=== PATIENT | male | born 1960 | race Caucasian/White ===

== ENCOUNTER 2016-10-01 12:52 | Inpatient (IN) | payer OTHER ==
[~2016-10-01] VITALS: Ht 167.6 cm; Wt 96.6 kg
[~2016-10-01 12:52] MED LIST: AMLO5TAB4 PO; FENO160T PO; METO-304 PO; OMEP40CA37 PO; PRAV40TA PO; WARF6TAB5 PO; WARF7.5T4 PO
--- NOTE | 2016-10-01 13:20 | NUR ---
PT BIB DAUGHTER C/O MID-CHEST PRESSURE SINCE LAST FRIDAY INTERMITTENTLY, WORSE WITH EXERTION, WHICH RADIATES TO "TOP OF SHOULDERS". PT ALSO C/O ASSOCIATED SOB AND ORTHOPNEA BUT MOSTLY RELIEVED [place]. RESP APPEARS EVEN UNLABORED, 96% ON ROOM AIR. ABLE TO SPEAK FULL SENTENCES. REPORTS DIAPHORESIS YESTERDAY; SKIN WARM AND SLIGHTLY DIAPHORETIC ON PRESENTATION. AMBULATORY WITH STEADY GAIT. IN ER BED 14 ON MONITOR.
[2016-10-01] MEDS ORDERED: NITROGLYCERIN PACKET 1 GM PACKET ONE (13:31)
[2016-10-01 13:33] LABS: BASOPHILS # (AUTO) 0.4 /CMM (0.0-0.2); EOSINOPHILS # (AUTO) 0.2 /CMM (0.0-0.7); EOSINOPHILS % (AUTO) 1.7 % (0.0-6.0); HEMATOCRIT 39 % (39-51); LYMPHOCYTES # (AUTO) 1.6 /CMM (0.8-4.8); LYMPHOCYTES % (AUTO) 11.5 % (20.0-44.0); MEAN CORPUSCULAR HEMOGLOBIN 30 PG (26.0-33.0); MEAN CORPUSCULAR HGB CONC 33 g/dl (31.0-36.0); MEAN CORPUSCULAR VOLUME 90 fL (80-96); MONOCYTES # (AUTO) 1.1 /CMM (0.1-1.30); MONOCYTES % (AUTO) 8.1 % (2.0-12.0); NEUTROPHILS # (AUTO) 10.2 /CMM (1.8-8.9); NEUTROPHILS % (AUTO) 75.7 % (43.0-81.0); PLATELET COUNT (AUTO) 169 /CMM (150-450); RDW COEFFICIENT OF VARIATION 13.8 (11.5-15.0); RED BLOOD CELL COUNT(AUTO) 4.36 MIL/uL (4.5-6.0); WHITE BLOOD COUNT (AUTO) 13.5 K/uL (4.3-11.0)
[2016-10-01 13:42] LABS: CALCIUM, SERUM 8.5 mg/dL (8.5-10.1); CREATININE 0.9 mg/dL (0.6-1.3); POTASSIUM 4.4 mmol/L (3.5-5.1)
[2016-10-01 13:46] LABS: INR 1.6 (0.87-1.13); PROTHROMBIN TIME 17.1 SECS (9.5-12.7)
[2016-10-01 13:50] LABS: TROPONIN I 0.027 ng/mL (0.00-0.056)
[2016-10-01 13:54] LABS: ALBUMIN 2.8 g/dL (3.4-5.0); BILIRUBIN,DIRECT 0.1 mg/dL (0.0-0.2); BILIRUBIN,TOTAL 0.6 mg/dL (0.2-1.0); TOTAL PROTEIN, SERUM 7.2 g/dL (6.4-8.2)
[2016-10-01] MEDS ORDERED: NITROGLYCERIN PACKET 1 GM PACKET TD ONE (14:00)
[2016-10-01] MEDS ORDERED: SPIR50TA PO (14:13)
--- NOTE | 2016-10-01 14:41 | NUR ---
RESTING QUIETLY, NAD NOTED. VSS. ALL NEEDS ATTENDED TO.
--- NOTE | 2016-10-01 14:42 | NUR ---
PER DR BOWEN'S ANSWERING SERVICE CALLS REFERRED TO [facility] Draft [facility]
--- NOTE | 2016-10-01 14:44 | NUR ---
PAGED MEMORY CARE PROGRAM RESIDENT FOR [employer]
--- NOTE | 2016-10-01 14:46 | NUR ---
REPORT GIVEN TO DRAGAN GUNN FOR ADMISSION
--- NOTE | 2016-10-01 16:05 | NUR ---
PT TRANSPORTED TO [facility] IN STABLE CONDITION VIA ACLS PROTOCOL
[2016-10-01 16:07] VITALS: BP 116/64
--- NOTE | 2016-10-01 16:07 | NUR ---
tele sonar subsystem equipment operator: admission admitted this 56 yr old male pt from [facility] with dx: chest pain. no c/o chest pain, but c/o slight headache. nitro paste removed. daughter and at bedside. pt a/ox4, ambulatory; georgian speaking only. daughter here to translate. oriented to room and surroundings. tele sr=86. vss, afebrile. in no apparent distress noted. dr. majano admitting today and aware of new admission. for cardiac consult. per dr. majano, dr. smith aware of consult as stated. pt and family updated plan of care. will continue to monitor.
[2016-10-01] MEDS ORDERED: MAGNESIUM HYDROXIDE 30 ML UDC PO PRN (16:30)
[2016-10-01] MEDS ORDERED: ONDANSETRON HCL/PF 4 MG/2 ML VIAL IVP PRN (16:30)
[2016-10-01] MEDS ORDERED: Z GUARD REMEDY 2 OZ OINT TP PRN (16:30)
[2016-10-01] MEDS ORDERED: HYDROCODONE/APAP 5/325MG 1 EACH TABLET PO PRN (16:30)
[2016-10-01] MEDS ORDERED: MAG HYDROX/AL HYDROX/SIMETH 30 ML UDC PO PRN (16:30)
[2016-10-01] MEDS ORDERED: ZOLPIDEM TARTRATE 5 MG TABLET PO PRN (16:30)
[2016-10-01] MEDS ORDERED: ACETAMINOPHEN 325 MG TABLET PO PRN (16:30)
[2016-10-01] MEDS: AMLODIPINE BESYLATE 5 MG TABLET PO SCH (17:24)
--- NOTE | 2016-10-01 17:30 | NUR ---
tele bus and trolley dispatcher: notes dinner served. tele sr=80's. family remains at bedside. will continue to monitor.
--- NOTE | 2016-10-01 18:15 | NUR ---
tele customer engineer: notes resting comfortable in bed with family remains at bedside. needs attended. instructed to call for assistance. will continue to monitor.
--- NOTE | 2016-10-01 18:49 | NUR ---
tele candle molder machine: md visit seen and examined by dr. majano at this time. all questions answered by re: pt and family concerns.
--- NOTE | 2016-10-01 19:30 | NUR ---
HUMAN RESOURCES DESIGNATE NOTE TELE SR 84. PATIENT AWAKE AND ALERT WITH FAMILY AT BEDSIDE. PATIENT DENIES ANY PAIN OR DISCOMFORT AT THIS TIME. NO RESPIRATORY DISTRESS OR SOB NOTED. BED LOCKED AND IN LOWEST POSITION. SIDE RAILS UP, CALL LIGHT WITHIN REACH. WILL CONTINUE TO MONITOR.
[2016-10-01 20:00] VITALS: BP 108/65
[2016-10-01] MEDS: ENOXAPARIN SODIUM 100 MG/ML DISP.SYRIN SQ SCH (20:28)
[2016-10-01 22:00] VITALS: BP 109/71
[2016-10-02] VITALS: BP 109/71
[2016-10-02 04:00] VITALS: BP 111/74
--- NOTE | 2016-10-02 06:17 | NUR ---
NECK BAND SETTER NOTE PATIENT STABLE. SLEEPING WELL THROUGH THE NIGHT. ALL NEEDS MET AND ATTENDED TO. WILL ENDORSE TO DAY SHIFT.
[2016-10-02 07:17] LABS: BASOPHILS # (AUTO) 0.1 /CMM (0.0-0.2); BASOPHILS % (AUTO) 0.5 % (0.0-2.0); EOSINOPHILS # (AUTO) 0.3 /CMM (0.0-0.7); EOSINOPHILS % (AUTO) 2.4 % (0.0-6.0); HEMATOCRIT 41 % (39-51); HEMOGLOBIN 13.9 g/dL (13.5-17.5); LYMPHOCYTES # (AUTO) 2.1 /CMM (0.8-4.8); LYMPHOCYTES % (AUTO) 18.1 % (20.0-44.0); MEAN CORPUSCULAR HEMOGLOBIN 30 PG (26.0-33.0); MEAN CORPUSCULAR HGB CONC 34 g/dl (31.0-36.0); MEAN CORPUSCULAR VOLUME 89 fL (80-96); MONOCYTES # (AUTO) 0.9 /CMM (0.1-1.30); MONOCYTES % (AUTO) 8.1 % (2.0-12.0); NEUTROPHILS # (AUTO) 8.3 /CMM (1.8-8.9); NEUTROPHILS % (AUTO) 70.9 % (43.0-81.0); PLATELET COUNT (AUTO) 172 /CMM (150-450); RDW COEFFICIENT OF VARIATION 14.6 (11.5-15.0); WHITE BLOOD COUNT (AUTO) 11.8 K/uL (4.3-11.0)
[2016-10-02 07:53] LABS: CALCIUM, SERUM 8.9 mg/dL (8.5-10.1); CREATININE 0.7 mg/dL (0.6-1.3); MAGNESIUM 2.1 mg/dL (1.8-2.4); PHOSPHORUS 3.5 mg/dL (2.5-4.9); POTASSIUM 3.9 mmol/L (3.5-5.1)
[2016-10-02 08:00] VITALS: BP 122/78
[2016-10-02] MEDS ORDERED: SPIRONOLACTONE 25 MG TABLET PO SCH (09:00)
[2016-10-02] MEDS ORDERED: METOPROLOL SUCCINATE 50 MG TAB.SR.24H PO SCH (09:00)
[2016-10-02] MEDS ORDERED: FENOFIBRATE 160 MG PO SCH (09:00)
[2016-10-02] MEDS: AMLODIPINE BESYLATE 5 MG TABLET PO SCH (09:46)
[2016-10-02] MEDS: ENOXAPARIN SODIUM 100 MG/ML DISP.SYRIN SQ SCH (09:47)
--- NOTE | 2016-10-02 09:55 | NUR ---
DRY COUGH WITH SQUEEZING AND RELEASING PRESSURE IN CHEST FOR 3 DAYS PER PATIENT.
[2016-10-02] MEDS ORDERED: SECONDARY IV SET 1 EA INFUS.SET MC ONE (10:45)
[2016-10-02 12:00] VITALS: BP 144/81
--- NOTE | 2016-10-02 12:30 | NUR ---
RECEIVED REPORT FROM [place]. WILL CONTINUE TO MONITOR AND ASSESS PATIENT THROUGHOUT MY SHIFT.
[2016-10-02] MEDS ORDERED: CT SWABBABLE VALVE TRANS SET 1 EA INFUS.SET MC ONE (12:44)
[2016-10-02] MEDS ORDERED: IOHEXOL-300 100 ML VIAL IV ONE (12:44)
[2016-10-02] MEDS ORDERED: IV NS 0.9% 250 ML IV ONE (12:44)
[2016-10-02 16:00] VITALS: BP 118/75
[2016-10-02] MEDS ORDERED: METOPROLOL TARTRATE 25 MG TABLET PO ONE (16:00)
--- NOTE | 2016-10-02 16:45 | NUR ---
MANUFACTURING PLANT CONTROLLER / TRANSFERRED ORDER PATIENT TRANSFERRED ORDER TO [facility] RECEIVED AND CARRIED OUT. PATIENT IS BEING TRANSFERRED TO [facility] VIA AMBULANCE AND TWO semiconductor technician. PATIENT VITAL SIGNS; BLOOD PRESSURE 122/77 HEART RATE 94. PATIENT ID BAND REMOVED. IV SITE IS INTACT AND PATENT, PATIENT IS GOING WITH THE IV SITE. NO SIGNS AND SYMPTOMS OF DISTRESS AT TIME OF TRANSFERRED. DISCHARGE INFORMATION AND A COPY OF THE CD PROVIDED TO PATIENT AND FAMILY TO GIVE TO [facility] RN. ALL PERSONAL BELONGING WITH PATIENT AT TIME OF DISCHARGE. PATIENT IS GOING TO ROOM 521. semiconductor technician AND FAMILY MADE AWARE OF ROOM NUMBER.
--- NOTE | 2016-10-02 17:52 | NUR ---
GAVE REPORT TO [facility] RN.
== END 2016-10-02 17:00 | disposition short-term general hospital (02) | DRG 197 ==
LOC: ER 12:53 → TELE 15:01
PROVIDERS: ADMIT Family Medicine; ATTEND Family Medicine
DX: I71.01 Dissection of thoracic aorta (principal); E44.0 Moderate protein-calorie malnutrition; I25.2 Old myocardial infarction; D72.829 Elevated white blood cell count, unspecified; E66.9 Obesity, unspecified; E78.5 Hyperlipidemia, unspecified; I10 Essential (primary) hypertension; Z68.34 Body mass index [BMI] 34.0-34.9, adult; Z95.2 Presence of prosthetic heart valve; I71.9 Aortic aneurysm of unspecified site, without rupture; Z79.01 Long term (current) use of anticoagulants
CPT/HCPCS: 36415; 71010-TC; 71260-TC; 80048-TC; 80061-TC; 80076-TC; 83735-TC; 83880; 84100-TC; 84484-TC; 85025-TC; 85730-TC; 87081-TC; 93307-TC; A4606; J1650; J7050; Q9967; Z7610